=== PATIENT | male | born 1995 | race Caucasian/White ===

== ENCOUNTER 2019-04-12 01:29 | Inpatient (IN) | payer MEDICAID, OTHER ==
[~2019-04-12] VITALS: Ht 185.4 cm; Wt 77.7 kg
[2019-04-12] MEDS ORDERED: ELVI1TAB3 PO (02:22)
[2019-04-12] MEDS ORDERED: CITA10TA68 PO (02:22)
[2019-04-12] MEDS ORDERED: CITA-106 PO (02:22)
[2019-04-12 03:03] LABS: ANION GAP 15 mmol/L (8-16); BASOPHILS % (AUTO) 0.2 % (0.0-2.0); CALCIUM, TOTAL 8.9 mg/dL (8.8-10.5); CARBON DIOXIDE 26 mmol/L (22-29); CHLORIDE 104 mmol/L (98-107); CREATININE 1.37 mg/dL (0.60-1.30); EOSINOPHILS % (AUTO) 0.7 % (1.0-6.0); GLOMERULAR FILTR. RATE CALC > 60 mL/min (>60); GLUCOSE,RANDOM 129 mg/dL (70-110); HEMATOCRIT 42.3 % (41-53); HEMOGLOBIN 14.6 g/dL (13.5-17.5); LYMPHOCYTES # (AUTO) 2.3 K/uL (1.0-4.8); LYMPHOCYTES % (AUTO) 22.6 % (22.0-44.0); MEAN CORPUSCULAR HEMOGLOBIN 33.6 pg (26.0-34.0); MEAN CORPUSCULAR HGB CONC 34.5 G/dL (31.0-37.0); MEAN CORPUSCULAR VOLUME 97 fL (80-100); MONOCYTES # (AUTO) 0.9 K/uL (0.1-1.0); MONOCYTES % (AUTO) 8.5 % (2.0-9.0); PLATELET COUNT (AUTO) 264 K/uL (150-450); POTASSIUM 3.7 mmol/L (3.5-5.1); RED BLOOD CELL COUNT(AUTO) 4.34 MIL/uL (4.50-5.90); SODIUM SERUM 145 mmol/L (136-145); UREA NITROGEN, BLOOD 13 mg/dL (7-18)
[2019-04-12 03:09] LABS: ALANINE AMINOTRANSFERASE 12 U/L (12-78); ALBUMIN 3.9 g/dL (3.4-5.0); ALKALINE PHOSPHATASE 62 U/L (46-116); BILIRUBIN,TOTAL 0.3 mg/dL (0.1-1.0); SALICYLATE 3.7 mg/dL (2.8-20.0); TOTAL PROTEIN, SERUM 7.3 g/dL (6.4-8.2)
[2019-04-12] MEDS ORDERED: LORazepam 2 MG/ML VIAL IM ONE (03:15)
[2019-04-12] MEDS ORDERED: DiphenhydrAMINE HCL 50 MG/ML VIAL IM ONE (03:15)
[2019-04-12] MEDS ORDERED: HALOPERIDOL LACTATE 5 MG/ML VIAL IM ONE (03:15)
[2019-04-12 03:20] LABS: ACETAMINOPHEN < 2 mcg/mL (10-30); ASPARTATE AMINOTRANSFERASE 15 U/L (15-37)
[2019-04-12 03:31] LABS: AMPHET/METH SCREEN,URINE NEGATIVE (NEGATIVE); BARBITURATE SCREEN, URINE NEGATIVE (NEGATIVE); BENZODIAZEPINES SCREEN,URINE POSITIVE (NEGATIVE); CANNABINOID SCREEN,URINE POSITIVE (NEGATIVE); COCAINE SCREEN,URINE NEGATIVE (NEGATIVE); METHADONE SCREEN, URINE NEGATIVE (NEGATIVE); OPIATE SCREEN,URINE NEGATIVE (NEGATIVE)
[2019-04-12 03:32] LABS: PHENCYCLIDINE SCREEN,URINE NEGATIVE (NEGATIVE)
[2019-04-12] MEDS ORDERED: HALOPERIDOL 5 MG TABLET PO PRN (07:00)
[2019-04-12] MEDS: CITALOPRAM HYDROBROMIDE 20 MG TABLET PO SCH (12:19)
[2019-04-12] MEDS: LORazepam 2 MG TABLET PO PRN (13:38)
[2019-04-12] MEDS ORDERED: NICOTINE 14 MG/24 HOUR PATCH TD ONE (16:30)
[2019-04-12] MEDS ORDERED: ELVITEG/COB/EMTRI/TENOF ALAFEN 150-150-200-10MG TABLET PO ONE (17:00)
[2019-04-12] MEDS ORDERED: MAGNESIUM HYDROXIDE SUSPENSION 30 ML UDCUP PO PRN (22:15)
[2019-04-12] MEDS ORDERED: ACETAMINOPHEN 325 MG TABLET PO PRN (22:15)
[2019-04-12] MEDS ORDERED: LOPERAMIDE HCL 2 MG CAPSULE PO PRN (22:15)
[2019-04-12] MEDS ORDERED: ONDANSETRON HCL 4 MG TABLET PO PRN (22:15)
[2019-04-12] MEDS ORDERED: MAG HYDROX/AL HYDROX/SIMETH ES 30 ML SUSPENSION UDCUP PO PRN (22:15)
[2019-04-12] MEDS ORDERED: CloNIDine HCL 0.1 MG TABLET PO PRN (22:15)
[2019-04-12] MEDS ORDERED: PETROLATUM,WHITE 28 GM JELLY TP PRN (22:15)
[2019-04-12] MEDS ORDERED: GuaiFENesin/D-METHORPHAN [SUGAR-FREE] 200-20MG/10 ML SYRUP UDCUP PO PRN (22:15)
[2019-04-12] MEDS ORDERED: ALBUTEROL SULFATE HFA 90 MCG/PUFF 8 GM INHALER IH PRN (22:15)
[2019-04-12] MEDS ORDERED: DOCUSATE SODIUM 100 MG CAPSULE PO PRN (22:15)
[2019-04-12] MEDS ORDERED: IBUPROFEN 400 MG TABLET PO PRN (22:15)
[2019-04-13] MEDS: ELVITEG/COB/EMTRI/TENOF ALAFEN 150-150-200-10MG TABLET PO SCH (08:53)
[2019-04-13] MEDS: CITALOPRAM HYDROBROMIDE 20 MG TABLET PO SCH (08:53)
[2019-04-13 10:52] LABS: CHOL/HDL RATIO 5.4 (4.2-7.3); CHOLESTEROL 194 mg/dL (131-200); HDL CHOLESTEROL 36 mg/dL (40-60); THYROID STIMULATING HORMONE 0.51 uIU/mL (0.36-3.74); TRIGLYCERIDES 577 mg/dL (15-150)
[2019-04-13 13:08] VITALS: BP 137/91
[2019-04-13] MEDS: NICOTINE 14 MG/24 HOUR PATCH TD PRN (18:28)
[2019-04-13 19:27] VITALS: BP 132/92
[2019-04-14] MEDS: LORazepam 2 MG TABLET PO PRN ×4 (00:15→21:01)
[2019-04-14] MEDS: ZOLPIDEM TARTRATE 10 MG TABLET PO PRN ×2 (00:15→20:08)
[2019-04-14] MEDS: NICOTINE 14 MG/24 HOUR PATCH TD PRN (07:55)
[2019-04-14] MEDS: ELVITEG/COB/EMTRI/TENOF ALAFEN 150-150-200-10MG TABLET PO SCH (07:56)
[2019-04-14] MEDS: CITALOPRAM HYDROBROMIDE 20 MG TABLET PO SCH (07:56)
[2019-04-14 08:01] VITALS: BP 122/77
[2019-04-14 16:07] VITALS: BP 127/77
[2019-04-15] MEDS: CITALOPRAM HYDROBROMIDE 20 MG TABLET PO SCH (08:13)
[2019-04-15] MEDS: ELVITEG/COB/EMTRI/TENOF ALAFEN 150-150-200-10MG TABLET PO SCH (08:13)
[2019-04-15] MEDS ORDERED: CITA40TA14 PO (08:42)
== END 2019-04-15 10:15 | disposition home or self-care (01) | DRG 751 ==
LOC: EMS 01:32 → 3EC 04-13 12:07
DX: F33.2 Major depressive disorder, recurrent severe without psychotic features (principal); Z78.1 Physical restraint status; E78.5 Hyperlipidemia, unspecified; F10.129 Alcohol abuse with intoxication, unspecified; F12.10 Cannabis abuse, uncomplicated; F17.210 Nicotine dependence, cigarettes, uncomplicated; R73.9 Hyperglycemia, unspecified; T42.8X2A Poisoning by antiparkinsonism drugs and other central muscle-tone depressants, intentional self-harm, initial encounter; Y92.89 Other specified places as the place of occurrence of the external cause; Z59.0 Homelessness; Z79.899 Other long term (current) drug therapy; Z91.5 Personal history of self-harm
CPT/HCPCS: 84443; 86361; 96372; G0480; G0481; J1200; J1630; J2060